=== PATIENT | female | born 1970 | race Caucasian/White ===

== ENCOUNTER → 2019-08-03 | Outpatient (CLI) | payer SELFPAY ==
--- NOTE | 2019-08-03 | EMB_PTH ---
PATIENT: HOOD ZHANG LOC: [facility] U#:[id number] AGE/SX: 48/F ROOM: RE08/03/[address]: Dr. Iglesia Grace MD : [id number] BED: DIS: 08/03/2019 SPEC #: [id number] RECD: 08/03/19 15:57 STATUS: ASHLI PAOLA #: [id number] NERY: 08/03/19 00:[address]: Iglesia Grace DEPT: SURGICAL PATHOLOGY RECD BY: Samson Castillo ENTERED: 08/04/19 10:08 SP TYPE: ENDOM BX/C SHIVA DR: No Primary Care Phys Tissues: Endometrium, NOS Procedures: Surgery Specimen Level IV HEADER OPERATION: Endometrial biopsy PRE-OP DIAGNOSIS: Abnormal uterine bleeding TISSUE SUBMITTED: Endometrial biopsy MICROSCOPIC DIAGNOSIS Endometrium, biopsy: Mildly disordered proliferative endometrium with focal glandular and stromal breakdown. AM:nile 08/07/19 MICROSCOPIC DESCRIPTION Slides are reviewed. GROSS DESCRIPTION Received in fixative is one container labeled with the patient's name and designated EM biopsy. The specimen consists of multiple fragments of hemorrhagic soft tissue that in aggregate measure 3 x 2.5 x 0.3 cm. The specimen is totally submitted in one cassette. / SJ:nile 08/03/29 TC:5 CPT: 13945
[2019-08-09 17:02] LABS: HPV Reflexed? NOT INDICATED
== END | disposition home or self-care (01) ==
LOC: LABSPEC 16:38
PROVIDERS: Referring Provider Obstetrics & Gynecology; Visit Provider Obstetrics & Gynecology
DX: N93.9 Abnormal uterine and vaginal bleeding, unspecified (principal); Z12.4 Encounter for screening for malignant neoplasm of cervix
CPT/HCPCS: 88175; 88305; G0145

== ENCOUNTER → 2021-11-27 | Outpatient (CLI) | payer SELFPAY ==
[2021-12-03 14:02] LABS: HPV Reflexed? NOT INDICATED
== END | disposition home or self-care (01) ==
LOC: LABSPEC 14:36
PROVIDERS: Visit Provider Obstetrics & Gynecology
DX: Z12.4 Encounter for screening for malignant neoplasm of cervix (principal)
CPT/HCPCS: 88175; G0145